=== PATIENT | male | born 1950 | race Caucasian/White ===

== ENCOUNTER 2017-01-12 09:04 | Day surgery (SDC) | payer OTHER, SELFPAY ==
--- NOTE | ~2017-01-12 | EGD ---
EGD REPORT [facility] [address] [place] [address] NAME: ROSLYN BESS : [birth year] [place] [facility] [place] [id number] AGE: 66 ADM/REG DATE : 01/12/17 MR#: [id number] REPORT SERV DATE: 01/12/17 DICTATED BY: ELIU HILARIO DATE: 01/12/17 REPORT STATUS : Draft TRANSCRIBED BY: [facility] DATE: 01/12/17 Endoscopy Center Patient Name: Roslyn Bess Date of : 1950 Attending MD: CAMILLA HILARIO MD Procedure Date No Time: 01/12/2017 Procedure: Upper GI endoscopy Indications: Dysphagia Referring MD: AKUA EPPS MD Medicines: See the Anesthesia note for documentation of the administered medications Complications: No immediate complications. Estimated blood loss: Minimal. Procedure: Pre-Anesthesia Assessment: - ASA Grade Assessment: III - A patient with severe systemic disease. - Prior to the procedure, a History and Physical was performed, and patient medications and allergies were reviewed. The patient's tolerance of previous anesthesia was also reviewed. The risks and benefits of the procedure and the sedation options and risks were discussed with the patient. All questions were answered, and informed consent was obtained. Prior Anticoagulants: The patient has taken Coumadin (warfarin), last dose was 4 days prior to procedure. After reviewing the risks and benefits, the patient was deemed in satisfactory condition to undergo the procedure. - Prior to the procedure, a History and Physical was performed, and patient medications and allergies were reviewed. The patient's tolerance of previous anesthesia was also reviewed. The risks and benefits of the procedure and the sedation options and risks were discussed with the patient. All questions were answered, and informed consent was obtained. Prior Anticoagulants: The patient has taken aspirin, last dose was day of procedure. After reviewing the risks and benefits, the patient was deemed in satisfactory condition to undergo the procedure. After obtaining informed consent, the endoscope was passed under direct vision. Throughout the procedure, the patient's blood pressure, pulse, and oxygen saturations were monitored continuously. The GIF [id number] was introduced through the mouth, and advanced to the second part of duodenum. The upper GI endoscopy EGD REPORT [address] [address] NAME: ROSLYN BESS : [birth year] STATUS : REG [facility]#: [id number] AGE: 66 ADM/REG DATE : 01/12/17 MR#: [id number] REPORT SERV DATE: 01/12/17 DICTATED BY: ELIU HILARIO DATE: 01/12/17 REPORT STATUS : Draft TRANSCRIBED BY: [employer] DATE: 01/12/17 was accomplished without difficulty. The patient tolerated the procedure well. Findings: The examined duodenum was normal. Diffuse mild inflammation characterized by congestion (edema) and erythema was found in the gastric antrum. Biopsies were taken with a cold forceps for histology. The cardia and gastric fundus were normal on retroflexion. Abnormal motility was noted in the esophagus. Tertiary peristaltic waves are noted. A benign-appearing, intrinsic mild stenosis was found at the gastroesophageal junction and was traversed. A guidewire was placed and the scope was withdrawn. Dilation was performed with a Savary dilator with no resistance at 51 Fr and mild resistance at 57 Fr. Estimated blood loss was minimal. Impression: - Normal examined duodenum. - Gastritis. Biopsied. - Esophageal motility disorder. - Benign-appearing esophageal stricture. Dilated. Recommendation: - Patient has a contact number available for emergencies. The signs and symptoms of potential delayed complications were discussed with the patient. Return to normal activities tomorrow. Written discharge instructions were provided to the patient. - Regular diet. - Discharge patient to home. - Continue present medications. - Await pathology results. - Restart your coumadin at your regular dose today. Procedure Code(s): --- Professional --- 46469, Esophagogastroduodenoscopy, flexible, transoral; with insertion of guide wire followed by passage of dilator(s) through esophagus over guide wire 17736, Esophagogastroduodenoscopy, flexible, transoral; with biopsy, single or multiple Diagnosis Code(s): --- Professional --- K29.70, Gastritis, unspecified, without bleeding K22.4, Dyskinesia of esophagus K22.2, Esophageal obstruction R13.10, Dysphagia, unspecified CPT copyright 2013 [employer]. All rights reserved. EGD REPORT [place] [address] [place] [address] [address] NAME: ROSLYN BESS : [birth year] [place] [facility] [place] [id number] AGE: 66 ADM/REG DATE : 01/12/17 MR#: [id number] REPORT SERV DATE: 01/12/17 DICTATED BY: ELIU HILARIO DATE: 01/12/17 REPORT STATUS : Draft TRANSCRIBED BY: [employer] DATE: 01/12/17 The codes documented in this report are preliminary and upon physician coder review may be revised to meet current compliance requirements. CAMILLA HILARIO MD 01/12/2017 10:44 AM This report has been signed electronically. Number of Addenda: 0 Note Initiated On: 01/12/2017 10:28 AM Scope Withdrawal Time 0 hours 0 minutes 0 seconds [facility] [place] [id number]
--- NOTE | ~2017-01-12 | EGD ---
EGD REPORT [facility] [address] [place] [address] NAME: ROSLYN BESS : [birth year] STATUS : REG [facility] [place] PAT#: [id number] AGE: 66 ADM/REG DATE : 01/12/17 MR#: [id number] REPORT SERV DATE: 01/12/17 DICTATED BY: ELIU HILARIO DATE: 01/12/17 REPORT STATUS : Draft TRANSCRIBED BY: [facility] DATE: 01/12/17 Endoscopy Center Patient Name: Roslyn Bess Date of : 1950 Attending MD: CAMILLA HILARIO MD Procedure Date No Time: 01/12/2017 Procedure: Colonoscopy Indications: Abdominal pain in the left lower quadrant, Constipation Referring MD: AKUA EPPS MD Medicines: See the Anesthesia note for documentation of the administered medications Complications: No immediate complications. Estimated blood loss: Minimal. Procedure: Pre-Anesthesia Assessment: - ASA Grade Assessment: III - A patient with severe systemic disease. - Prior to the procedure, a History and Physical was performed, and patient medications and allergies were reviewed. The patient's tolerance of previous anesthesia was also reviewed. The risks and benefits of the procedure and the sedation options and risks were discussed with the patient. All questions were answered, and informed consent was obtained. Prior Anticoagulants: The patient has taken Coumadin (warfarin), last dose was 4 days prior to procedure. After reviewing the risks and benefits, the patient was deemed in satisfactory condition to undergo the procedure. - Prior to the procedure, a History and Physical was performed, and patient medications and allergies were reviewed. The patient's tolerance of previous anesthesia was also reviewed. The risks and benefits of the procedure and the sedation options and risks were discussed with the patient. All questions were answered, and informed consent was obtained. Prior Anticoagulants: The patient has taken aspirin, last dose was day of procedure. After reviewing the risks and benefits, the patient was deemed in satisfactory condition to undergo the procedure. After I obtained informed consent, the scope was passed under direct vision. Throughout the procedure, the patient's blood pressure, pulse, and oxygen saturations were monitored continuously. The PCF [id number] was introduced through the anus and advanced to the terminal ileum. The ileocecal valve, appendiceal orifice, EGD REPORT [address] [address] NAME: ROSLYN BESS : [birth year] STATUS : REG [facility]#: [id number] AGE: 66 ADM/REG DATE : 01/12/17 MR#: [id number] REPORT SERV DATE: 01/12/17 DICTATED BY: ELIU HILARIO DATE: 01/12/17 REPORT STATUS : Draft TRANSCRIBED BY: [employer] DATE: 01/12/17 terminal ileum and rectum were photographed. The entire colon was examined. The colonoscopy was performed without difficulty. The patient tolerated the procedure well. The quality of the bowel preparation was inadequate. Findings: The perianal and digital rectal examinations were normal. The terminal ileum appeared normal. A sessile polyp was found in the sigmoid colon. The polyp was 10 mm in size. The polyp was removed with a hot snare. Resection and retrieval were complete. A sessile polyp was found at the hepatic flexure. The polyp was 5 mm in size. The polyp was removed with a cold snare. Resection and retrieval were complete. A sessile polyp was found in the mid ascending colon. The polyp was 4 mm in size. The polyp was removed with a cold snare. Resection and retrieval were complete. A sessile polyp was found in the distal ascending colon. The polyp was 3 mm in size. The polyp was removed with a piecemeal technique using a cold biopsy forceps. Resection and retrieval were complete. A sessile polyp was found in the mid transverse colon. The polyp was 7 mm in size. The polyp was removed with a hot snare. Resection and retrieval were complete. A sessile polyp was found at the splenic flexure. The polyp was 6 mm in size. The polyp was removed with a cold snare. Resection and retrieval were complete. Multiple small and large-mouthed diverticula were found in the entire colon. Non-bleeding internal hemorrhoids were found during retroflexion and were Grade I (internal hemorrhoids that do not prolapse). Impression: - Preparation of the colon was inadequate. - The examined portion of the ileum was normal. - One 10 mm polyp in the sigmoid colon. Resected and retrieved. - One 5 mm polyp at the hepatic flexure. Resected and retrieved. - One 4 mm polyp in the mid ascending colon. Resected and retrieved. - One 3 mm polyp in the distal ascending colon. Resected and retrieved. - One 7 mm polyp in the mid transverse colon. Resected and retrieved. - One 6 mm polyp at the splenic flexure. Resected and retrieved. - Diverticulosis in the entire examined colon. - Non-bleeding internal hemorrhoids. EGD REPORT [address] [address] NAME: ROSLYN BESS : [birth year] STATUS : REG [facility]#: [id number] AGE: 66 ADM/REG DATE : 01/12/17 MR#: [id number] REPORT SERV DATE: 01/12/17 DICTATED BY: ELIU HILARIO DATE: 01/12/17 REPORT STATUS : Draft TRANSCRIBED BY: [employer] DATE: 01/12/17 Recommendation: - Patient has a contact number available for emergencies. The signs and symptoms of potential delayed complications were discussed with the patient. Return to normal activities tomorrow. Written discharge instructions were provided to the patient. - High fiber diet indefinitely. - Discharge patient to home. - Continue present medications. - Await pathology results. - Repeat colonoscopy in 1 year for surveillance. - Restart coumadin tomorrow Procedure Code(s): --- Professional --- 16840, Colonoscopy, flexible, proximal to splenic flexure; with removal of tumor(s), polyp(s), or other lesion(s) by snare technique 11654, 59, Colonoscopy, flexible, proximal to splenic flexure; with biopsy, single or multiple Diagnosis Code(s): --- Professional --- K64.0, First degree hemorrhoids K57.30, Diverticulosis of large intestine without perforation or abscess without bleeding D12.2, Benign neoplasm of ascending colon D12.3, Benign neoplasm of transverse colon D12.5, Benign neoplasm of sigmoid colon R10.32, Left lower quadrant pain K59.00, Constipation, unspecified CPT copyright 2013 [employer]. All rights reserved. The codes documented in this report are preliminary and upon chief dispatcher service review may be revised to meet current compliance requirements. CAMILLA HILARIO MD 01/12/2017 11:19 AM This report has been signed electronically. Number of Addenda: 0 Note Initiated On: 01/12/2017 10:24 AM Scope Withdrawal Time 0 hours 19 minutes 21 seconds [address] [id number]
[~2017-01-12 09:04] MED LIST: ACET500CAP PO; ASA5GR PO; BACDS PO; BEN25 PO; BENADRYL 50 MG50 MG PO; BUSPAR10 PO; CARDU4 PO; CORDARONE PO; COREGCR40 PO; COZ50 PO; COZAAR100 MG PO; CYMBALTA30 PO; CYMBALTA60 PO; DIABETA5 PO; DSS PO; EXELON4.6T TOP; EXELON9.5T TOP; FOLIC ACID OTC PO; FOLIC PO; GLUCOPHAGE1000 MG PO; GLUCPH PO; HALF81 PO; HCTZ50B PO; HUMALOG SC; HUMAMIXPEN SC; HYDROCHLOROT50 MG PO; HYT1 PO; IMDUR60 PO; JANTOVEN1 MG PO; JANTOVEN3 MG PO; JANTOVEN4 MG PO; KLONO2 PO; L20 PO; LANTUS SC; LEVAQUIN5T PO; LEVAQUIN750 MG PO; LIOR10 PO; LOP25 PO; LOP50 PO; LORTAB10 PO; MEVACOR40 MG PO; MOBIC15 MG PO; MOBIC7.5 PO; MULTI-VIT HP PO; MULTIVIT/MIN PO; NAMENXR14 PO; NAMENXR7 PO; NEUR600 PO; NEXIUM40 PO; NITROSTAT0.4 MG SL; NORCO1 TA2 PO; NORCO1 TAB PO; PACERONE200 MG PO; PRAVAC PO; PRIN10 PO; PRIN20 PO; PROAIR HFA INH; PROZ10 PO; ROZEREM8 MG PO; SEROQUEL1C PO; T PO; TAMIFLU PO; TEARS PURE OPH; TEG200 PO; TOPAMAX25 PO; UNKNOWN MEDS; V5 PO; VALIUM10 MG PO; XALAT OPH; ZANTAC 150 PO; ZANTAC150 MG PO; ZESTORETIC1 TA1 PO
[2017-05-01] MEDS ORDERED: NORCO1 TAB PO (15:55)
[2017-05-01] MEDS ORDERED: NEUR600 PO (15:58)
[2017-05-01] MEDS ORDERED: COUMADIN3 MG PO (16:03)
[2017-05-01] MEDS ORDERED: JANTOVEN3 MG PO (16:04)
== END 2017-01-12 23:59 | disposition home or self-care (01) ==
LOC: DMU 09:04
PROVIDERS: Internal Medicine Gastroenterology
PROC: 0D748ZZ Dilation of Esophagogastric Junction, Via Natural or Artificial Opening Endoscopic (ICD-10-PCS; 2017-01-12)
PROC: 0DBK8ZZ Excision of Ascending Colon, Via Natural or Artificial Opening Endoscopic (ICD-10-PCS; principal; 2017-01-12 11:00)
PROC: 0DBN8ZZ Excision of Sigmoid Colon, Via Natural or Artificial Opening Endoscopic (ICD-10-PCS; 2017-01-12 11:00)
PROC: 0DBL8ZZ Excision of Transverse Colon, Via Natural or Artificial Opening Endoscopic (ICD-10-PCS; 2017-01-12 11:00)
PROC: 0DB68ZX Excision of Stomach, Via Natural or Artificial Opening Endoscopic, Diagnostic (ICD-10-PCS; 2017-01-12 11:00)
DX: K29.50 Unspecified chronic gastritis without bleeding (principal); D12.5 Benign neoplasm of sigmoid colon; D12.3 Benign neoplasm of transverse colon; D12.2 Benign neoplasm of ascending colon; K57.30 Diverticulosis of large intestine without perforation or abscess without bleeding; K64.0 First degree hemorrhoids; K22.2 Esophageal obstruction; K22.4 Dyskinesia of esophagus; K21.9 Gastro-esophageal reflux disease without esophagitis; K57.92 Diverticulitis of intestine, part unspecified, without perforation or abscess without bleeding; I12.9 Hypertensive chronic kidney disease with stage 1 through stage 4 chronic kidney disease, or unspecified chronic kidney disease; E11.22 Type 2 diabetes mellitus with diabetic chronic kidney disease; E11.40 Type 2 diabetes mellitus with diabetic neuropathy, unspecified; N18.9 Chronic kidney disease, unspecified; I25.10 Atherosclerotic heart disease of native coronary artery without angina pectoris; I25.2 Old myocardial infarction; I48.91 Unspecified atrial fibrillation; F17.290 Nicotine dependence, other tobacco product, uncomplicated; F41.9 Anxiety disorder, unspecified; L40.9 Psoriasis, unspecified; F32.9 Major depressive disorder, single episode, unspecified; H91.90 Unspecified hearing loss, unspecified ear; G47.33 Obstructive sleep apnea (adult) (pediatric); M19.90 Unspecified osteoarthritis, unspecified site; Z88.5 Allergy status to narcotic agent; Z88.6 Allergy status to analgesic agent; Z88.8 Allergy status to other drugs, medicaments and biological substances; J44.9 Chronic obstructive pulmonary disease, unspecified; Z95.1 Presence of aortocoronary bypass graft; Z96.1 Presence of intraocular lens; Z98.41 Cataract extraction status, right eye; Z87.442 Personal history of urinary calculi; Z79.01 Long term (current) use of anticoagulants; Z79.4 Long term (current) use of insulin; Z79.82 Long term (current) use of aspirin; Z79.899 Other long term (current) drug therapy; Z98.890 Other specified postprocedural states
CPT/HCPCS: 82962; 88305; 88342